=== PATIENT | male | born 1955 | race Caucasian/White ===

== ENCOUNTER → 2016-06-06 | Outpatient (CLI) | payer OTHER ==
[~2016-06-06] MED LIST: AMLO-110 PO; ASCO250T4 PO; ASPI81TA28 PO; ATOR-22 PO; CHOL1000 PO; CHOL20007 PO; COEN1CAP7 PO; GLC/500 PO; HYDR-5688 PO; LEVO75TA5 PO; LISI-461 PO; LIVER AID PO; MULT-506 PO; OMEG10007 PO; PRLSR20 PO; TRIATAB3 PO
[2016-06-06 12:50] LABS: URINE APPEARANCE CLEAR (CLEAR); URINE BILIRUBIN NEG (NEG); URINE COLOR YELLOW; URINE NITRITE NEG (NEG); URINE SPECIFIC GRAVITY 1.024 (1.000-1.030); UROBILINOGEN NEG (NEG); ZZUR CULT IF INDIC CLEAN CATCH NO
[2016-06-06 12:51] LABS: MANUAL MICROSCOPIC REQUIRED? NO; REVIEW REQ? NO
[2016-06-06 13:05] LABS: ALB/GLOB RATIO 1.2 (0.9-2); ALT/SGPT 35 U/L (12-78); AST/SGOT 11 U/L (15-37); BLOOD UREA NITROGEN 20 mg/dl (7-18); BUN/CREATININE RATIO 19.6 (10-20); CALCIUM 8.6 mg/dl (8.5-10.1); CARBON DIOXIDE 29 mmol/L (21-32); CHLORIDE 107 mmol/L (98-107); CHOLESTEROL 202 mg/dl (0-200); CHOLESTEROL/HDL RATIO 4.3; GLUCOSE 136 mg/dl (70-99); HDL CHOLESTEROL 47 mg/dl; POTASSIUM 4.4 mmol/L (3.5-5.1); SODIUM 142 mmol/L (136-145)
[2016-06-06 13:14] LABS: BASO % 0.2 %; BASO ABS # 0.02 K/uL (0-0.2); COMPLETE YES; EOS % 4.4 %; HEMATOCRIT 46.9 % (42-52); IG% 0.3 %; LYMPH % 18.9 %; LYMPH ABS # 1.64 K/uL (1.2-3.4); MEAN CELL VOLUME 87.3 fL (80-100); MEAN CORPUSCULAR HGB CONC 34.3 g/dl (32-36); MEAN PLATELET VOLUME 10.8 fL (7.4-10.4); MONO % 7.7 %; NEUT % 68.5 %; PLATELET COUNT 248 K/uL (130-400); RED BLOOD COUNT 5.37 M/uL (4.7-6.1)
[2016-06-06 13:16] LABS: ALKALINE PHOSPHATASE 48 U/L (45-117); LDL CHOLESTEROL CALCULATED 132 mg/dl; TRIGLYCERIDES 115 mg/dl (0-150); VERY LOW DENSITY LIPOPROT CALC 23 mg/dl
[2016-06-06 13:21] LABS: ESTIMATED AVERAGE GLUCOSE 143 mg/dl; HA1C FLAG Normal (Normal)
== END | disposition home or self-care (01) ==
LOC: C.LABBFT 09:00
PROVIDERS: ATTEND Internal Medicine
DX: E55.9 Vitamin D deficiency, unspecified (principal); E11.9 Type 2 diabetes mellitus without complications; E03.9 Hypothyroidism, unspecified; Z12.5 Encounter for screening for malignant neoplasm of prostate; E78.5 Hyperlipidemia, unspecified

== ENCOUNTER → 2016-07-25 | Outpatient (CLI) | payer OTHER ==
[2016-07-25 12:53] LABS: THYROID STIMULATING HORMONE 8.95 uIu/ml (0.300-4.500)
== END | disposition home or self-care (01) ==
LOC: C.LABBFT 07:34
PROVIDERS: ATTEND Nurse Practitioner
DX: Z11.59 Encounter for screening for other viral diseases (principal); E78.5 Hyperlipidemia, unspecified; E03.9 Hypothyroidism, unspecified

== ENCOUNTER 2016-08-07 15:44 | Emergency (ER) | payer OTHER ==
[~2016-08-07] VITALS: Ht 172.7 cm; Wt 89.8 kg
[~2016-08-07 15:44] MED LIST changes: -AMLO-110 PO; -ATOR-22 PO; -CHOL1000 PO; -GLC/500 PO; -HYDR-5688 PO; -LEVO75TA5 PO; -LISI-461 PO; -MULT-506 PO
[2016-08-07 15:55] VITALS: TEMP 37; Ht 172.7 cm; Wt 89.8 kg
[2016-08-07] MEDS ORDERED: MULT-506 PO (18:02)
[2016-08-07 18:03] LABS: BASO % 0.2 %; BASO ABS # 0.02 K/uL (0-0.2); COMPLETE YES; EOS % 4.6 %; HEMATOCRIT 43.8 % (42-52); IG% 0.5 %; LYMPH % 14.7 %; LYMPH ABS # 1.43 K/uL (1.2-3.4); MEAN CELL VOLUME 84.4 fL (80-100); MEAN CORPUSCULAR HEMOGLOBIN 30.1 pg (25-34); MEAN CORPUSCULAR HGB CONC 35.6 g/dl (32-36); MEAN PLATELET VOLUME 9.8 fL (7.4-10.4); MONO % 9.6 %; NEUT % 70.4 %; PLATELET COUNT 258 K/uL (130-400); RED BLOOD COUNT 5.19 M/uL (4.7-6.1); WHITE BLOOD COUNT 9.72 K/uL (4.8-10.8)
[2016-08-07] MEDS ORDERED: ATOR-22 PO (18:03)
[2016-08-07] MEDS ORDERED: AMLO-110 PO (18:04)
[2016-08-07] MEDS ORDERED: LISI-461 PO (18:05)
[2016-08-07] MEDS ORDERED: LEVO75TA5 PO (18:06)
[2016-08-07] MEDS ORDERED: GLC/500 PO (18:07)
[2016-08-07 18:08] LABS: BUN/CREATININE RATIO 17.6 (10-20); CALCIUM 9.2 mg/dl (8.5-10.1); CREATININE 0.92 mg/dl (0.60-1.40); POTASSIUM 3.7 mmol/L (3.5-5.1)
[2016-08-07] MEDS ORDERED: CHOL1000 PO (18:09)
[2016-08-07 18:11] LABS: ALB/GLOB RATIO 1.1 (0.9-2)
--- NOTE | 2016-08-07 18:28 | DIAGNOSTIC IMAGING REPORT ---
RIGHT INGUINAL ULTRASOUND CLINICAL HISTORY: Right inguinal pain s/p heavy lifting COMPARISON STUDY: No previous studies for comparison. FINDINGS: Ultrasonographic evaluation of the right inguinal region demonstrates a partially reducible fat-containing right inguinal hernia. IMPRESSION: Fat-containing right inguinal hernia. Electronically signed by: Cade Pete M.D. 08/07/2016 6:26 PM Dictated Date/Time: 08/07/2016 6:25 PM
--- NOTE | 2016-08-07 18:54 | EMERGENCY ROOM VISIT NOTE ---
History First contact with patient: 17:03 Chief Complaint: GROIN PAIN Stated Complaint: HERNIA History of Present Illness The patient is a 61 year old male who presents to the Emergency Room via private vehicle accompanied by female with complaints of "hernia". The patient states that yesterday afternoon around 7 PM, he had a calf therefore lifted this and immediately felt a pulling in his right lower quadrant. He notes that he has had a hernia there for many years, he believes he may reinjured it this evening. He notes lower abdominal pain which he rates as a 6/ 10. He notes relief of the pain when lying flat an exacerbation when he is sitting upright. He also feels a palpable bulge in the right lower quadrant/ inguinal region just superior to the right testicular region. 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 He notes that his urination has been normal. Review of Systems A complete 10-point Review of Systems was discussed with the patient, with pertinent positives and negatives listed in the History of Present Illness. All remaining Review of Systems questions can be considered negative unless otherwise specified. Past Medical/Surgical History Medical Problems: (1) HTN (hypertension) (2) Prostatitis Family History Cancer Social History Smoking Status: Never Smoker Marital Status: Housing Status: lives with family Occupation Status: employed Current/Historical Medications Scheduled Amlodipine (Norvasc), 5 MG PO DAILY Atorvastatin (Lipitor), 20 MG PO HS Cholecalciferol (Vitamin D3), 2,000 UNITS PO DAILY Levothyroxine Sodium (Levothyroxine Sodium), 75 MCG PO DAILY Lisinopril (Zestril), 10 MG PO DAILY Metformin Hcl (Glucophage), 1,000 MG PO BIDM Multivitamin (Multivitamin), 1 TAB PO DAILY Omeprazole (Prilosec), 20 MG PO QAM Allergies Coded Allergies: Codeine (Verified Adverse Reaction, Mild, nausea, 08/07/16) Physical Exam Vital Signs Date Time Temp Pulse Resp B/P Pulse Ox O2 Delivery O2 Flow Rate FiO2 08/07/16 19:03 76 21 137/85 96 08/07/16 15:55 37.0 86 18 175/92 98 Room Air Physical Exam VITAL SIGNS - Vital signs and nursing notes were reviewed. Patient is afebrile , hypertensive at 175/92, nontachypneic cardiac and is saturating well on room air 98%. GENERAL -61-year-old male appearing his stated age who is in no acute distress. Communicates well with provider and answers questions appropriately. SKIN - Without rashes. No breaks in the integument. There is a palpable bulge in the right inguinal region that is tender to palpation. This is partially reducible. LUNGS - Chest wall symmetric without accessory muscle use, intercostals retractions, or central cyanosis. Normal vesicular breath sounds CTA B/L. No wheezes, rales, or rhonchi appreciated. CARDIAC - RRR with S1/S2. No murmur, rubs, or gallops appreciated. ABDOMEN - Abdominal contour without pulsations or visible masses. BS normoactive all four quadrants. There is tenderness to palpation of the right inguinal region, right upper quadrant and diffuse lower abdominal region. There is also a palpable mass in the right inguinal region. This is partially reducible. The skin overlying this region is unremarkable. No erythema or evidence of sialitis. No hepatosplenomegaly, or ascites noted. Medical Decision & Procedures ER Provider Diagnostic Interpretation: RIGHT INGUINAL ULTRASOUND CLINICAL HISTORY: Right inguinal pain s/p heavy lifting COMPARISON STUDY: No previous studies for comparison. FINDINGS: Ultrasonographic evaluation of the right inguinal region demonstrates a partially reducible fat-containing right inguinal hernia. IMPRESSION: Fat-containing right inguinal hernia. Electronically signed by: Cade Pete M.D. 08/07/2016 6:26 PM Dictated Date/Time: 08/07/2016 6:25 PM Laboratory Results 08/07/16 17:58 Red Blood Count 5.19, Mean Corpuscular Volume 84.4, Mean Corpuscular Hemoglobin 30.1, Mean Corpuscular Hemoglobin Concent 35.6, Mean Platelet Volume 9.8, Neutrophils (%) (Auto) 70.4, Lymphocytes (%) (Auto) 14.7, Monocytes (%) (Auto) 9.6, Eosinophils (%) (Auto) 4.6, Basophils (%) (Auto) 0.2, Neutrophils # (Auto) 6.84, Lymphocytes # (Auto) 1.43, Monocytes # (Auto) 0.93, Eosinophils # (Auto) 0.45, Basophils # (Auto) 0.02 08/07/16 17:38 Test 08/07/16 17:38 08/07/16 17:58 Anion Gap 11.0 mmol/L (3-11) Est Creatinine Clear Calc Drug Dose 94.1 ml/min Estimated GFR () 105.1 Estimated GFR (Non- 90.7 BUN/Creatinine Ratio 17.6 (10-20) Calcium Level 9.2 mg/dl (8.5-10.1) Total Bilirubin 0.5 mg/dl (0.2-1) Aspartate Amino Transf (AST/SGOT) 15 U/L (15-37) Alanine Aminotransferase (ALT/SGPT) 23 U/L (12-78) Alkaline Phosphatase 64 U/L (45-117) Total Protein 7.7 gm/dl (6.4-8.2) Albumin 4.0 gm/dl (3.4-5.0) Globulin 3.7 gm/dl (2.5-4.0) Albumin/Globulin Ratio 1.1 (0.9-2) White Blood Count 9.72 K/uL (4.8-10.8) Red Blood Count 5.19 M/uL (4.7-6.1) Hemoglobin 15.6 g/dL (14.0-18.0) Hematocrit 43.8 % (42-52) Mean Corpuscular Volume 84.4 fL (80-100) Mean Corpuscular Hemoglobin 30.1 pg (25-34) Mean Corpuscular Hemoglobin Concent 35.6 g/dl (32-36) Platelet Count 258 K/uL (130-400) Mean Platelet Volume 9.8 fL (7.4-10.4) Neutrophils (%) (Auto) 70.4 % Lymphocytes (%) (Auto) 14.7 % Monocytes (%) (Auto) 9.6 % Eosinophils (%) (Auto) 4.6 % Basophils (%) (Auto) 0.2 % Neutrophils # (Auto) 6.84 K/uL (1.4-6.5) Lymphocytes # (Auto) 1.43 K/uL (1.2-3.4) Monocytes # (Auto) 0.93 K/uL (0.11-0.59) Eosinophils # (Auto) 0.45 K/uL (0-0.5) Basophils # (Auto) 0.02 K/uL (0-0.2) RDW Standard Deviation 39.7 fL (36.4-46.3) RDW Coefficient of Variation 12.9 % (11.5-14.5) Immature Granulocyte % (Auto) 0.5 % Immature Granulocyte # (Auto) 0.05 K/uL (0.00-0.02) Medical Decision Patient was seen and evaluated as above. After obtaining a thorough history and physical examination IV access was initiated, and a CBC, CMP as well as a right inguinal ultrasound were obtained. Thorough discussion was had with the patient regarding imaging modalities, and it was decided that we would hold off from the CT scan. The ultrasound revealed a partially reducible fat-containing hernia. Patient's lab work was unremarkable for acute process. No leukocytosis or anemia. CMP was completely normal. Patient was then offered a CAT scan after returning from ultrasound, due to his initial complaint of generalized abdominal pain, however after returning from ultrasound he notes he was feeling much better, and at this time declined the CAT scan, specifically at 6:45 PM. It was decided the patient would return with worsening of his pain. He was provided with the number for a general surgeon to follow-up by by calling the number provided first thing tomorrow morning. I do believe this is reasonable. He was specifically educated to return with worsening pain, fevers , chills or any new/concerning symptoms. He was educated upon management today symptoms, had questions prior to discharge, was educated upon worrisome symptoms which to return and was discharged home in good condition. In evaluation treatment this patient following differential diagnoses were entertained: Right inguinal hernia, acute intra-abdominal process, incarcerated hernia, strangely did hernia, among others. Impression Primary Impression: Inguinal hernia Departure Information Dispostion Home / Self-Care Condition GOOD Referrals Malcolm Lamas M.D. (PCP) Vasu Rivera D.O. Patient Instructions My [facility] Additional Instructions You have been treated in the Emergency Department your Abdominal Pain. Laboratory results and imaging studies have ruled out any emergent causes for your abdominal pain which would warrant admission or surgery. Ultrasound results: Ultrasonographic evaluation of the right inguinal region demonstrates a partially reducible fat-containing right inguinal hernia. For pain control, you can use the following [id number] medicines (if >12 yo): - Regular strength (325mg/tab) Tylenol (acetaminophen) 2 tabs every 4-6 hours as needed. Do not exceed 12 tablets in a 24 hour period. Avoid taking more than 4 grams (4000 mg) of Tylenol per day. This includes any other sources of acetaminophen you may take on a regular basis. - Regular strength (200 mg/tab) Advil (ibuprofen) 1-2 tabs every 4-6 hours as needed. Do not exceed a dose of 3200 mg per day. Drink plenty of water and stay well hydrated. As with any trip to the Emergency Department, you should follow-up with your Primary Care Provider from today's visit. You have been provided the number for a surgeon, who will be able to manage your inguinal hernia. This is Dr. Rivera. Please call the above contact first thing tomorrow morning. Return to the emergency department if your symptoms persist despite treatment plan outlined above or if the following symptoms occur: increased fevers, chills , worsening nausea/vomiting, blood in your stool or urine.
[2016-08-07 19:03] VITALS: BP 137/85; PULSE 76; O2SAT 96
[2016-09-11] MEDS ORDERED: OMEG10007 PO (14:50)
== END 2016-08-07 19:06 | disposition home or self-care (01) ==
LOC: C.EDB 15:45
DX: K40.90 Unilateral inguinal hernia, without obstruction or gangrene, not specified as recurrent (principal); I10 Essential (primary) hypertension; Z79.84 Long term (current) use of oral hypoglycemic drugs; Z79.899 Other long term (current) drug therapy; Z88.5 Allergy status to narcotic agent; Z80.9 Family history of malignant neoplasm, unspecified

== ENCOUNTER → 2016-09-12 | Outpatient (CLI) | payer OTHER ==
[~2016-09-12] MED LIST changes: +AMLO-110 PO; -ASCO250T4 PO; -ASPI81TA28 PO; +ATOR-22 PO; +CHOL1000 PO; -CHOL20007 PO; -COEN1CAP7 PO; +GLC/500 PO; +HYDR-5688 PO; +LEVO75TA5 PO; +LISI-461 PO; -LIVER AID PO; +MULT-506 PO; -TRIATAB3 PO
== END | disposition home or self-care (01) ==
LOC: C.LABBFT 08:31
PROVIDERS: ATTEND Physician Assistant Medical
DX: E03.9 Hypothyroidism, unspecified (principal)

== ENCOUNTER 2016-09-14 06:47 | Day surgery (SDC) | payer OTHER ==
[~2016-09-14] VITALS: Ht 172.7 cm; Wt 90.9 kg
[~2016-09-14 06:47] MED LIST changes: +CEFAZOLIN 2000 MG/60 ML D5W IV SCH; +HEPARIN SOD 5000 UNIT/0.5 ML CARP SC SCH; -HYDR-5688 PO; +LACTATED RINGER'S 1000ML 1,000 ML IV SCH
[2016-09-14] MEDS ORDERED: MIDAZOLAM HCL 1 MG/ML 2ML VIAL ONE (07:12)
[2016-09-14 07:13] VITALS: BP 154/90; PULSE 91; TEMP 37; O2SAT 98; Ht 172.7 cm; Wt 90.9 kg
[2016-09-14] MEDS ORDERED: FENTANYL CITRATE INJ 50 MCG/1 ML 2 ML VIAL ONE ×2 (07:26→09:51)
--- NOTE | 2016-09-14 08:00 | History & Physical Bridge Note ---
H&P Re-Evaluation Bridge Note: I have examined the patient, reviewed the History & Physical and in the interval since the performance of the History & Physical I have noted the following changes of clinical significance: No changes noted
[2016-09-14] MEDS ORDERED: HYDR-5688 PO (08:08)
--- NOTE | 2016-09-14 08:10 | Discharge Instructions ---
Discharge Instructions Date of Service Sep 14, 2016. Admission Reason for Admission: Right Inguinal Hernia Discharge Discharge Diagnosis / Problem: Right Inguinal Hernia Discharge Goals Goal(s): Decrease discomfort, Improve function Activity Recommendations Activity Limitations: as noted below Lifting Limitations: no more than 10 pounds Exercise/Sports Limitations: until after follow-up appointment May Resume Sexual Activity: after follow-up appointment Shower/Bathe: tomorrow . Instructions / Follow-Up Instructions / Follow-Up Please follow-up with Dr. Rivera in the office in 1-2 weeks. Please call the office at [phone] with any questions or concerns. Current Hospital Diet Patient's current hospital diet: Discharge Diet Recommended Diet: Regular Diet Pending Studies Studies pending at discharge: no Medical Emergencies . Who to Call and When: Medical Emergencies: If at any time you feel your situation is an emergency, please call 911 immediately. . Non-Emergent Contact Non-Emergency issues call your: Primary Care Provider, Surgeon Call Non-Emergent contact if: temperature is above 101.5, your pain is not controlled, wound has increased drainage, wound has increased redness . "Provider Documentation" section prepared by Marisa Castro. . VTE Core Measure Inpt VTE Proph given/why not?: Unfractionated heparin SQ, SCD's
[2016-09-14] MEDS ORDERED: BUPIVACAINE/EPINEPHRINE 0.5% MPF 1:200,000 30 ML VIAL ONE (08:17)
[2016-09-14] MEDS ORDERED: LIDOCAINE HCL 2% 2 ML VIAL (20MG/ML) ONE (08:42)
[2016-09-14] MEDS ORDERED: DEXAMETHASONE SOD INJ 4 MG/ML VIAL ONE (08:42)
[2016-09-14] MEDS ORDERED: ONDANSETRON INJ 2 MG/ML 2 ML VIAL ONE (08:42)
[2016-09-14] MEDS ORDERED: GLYCOPYRROLATE INJ 0.2 MG/ML VIAL ONE (08:42)
[2016-09-14] MEDS ORDERED: ROCURONIUM BROMIDE 10 MG/ML 5 ML VIAL ONE (08:42)
[2016-09-14] MEDS ORDERED: NEOSTIGMINE METHYLSULFATE 5 MG/5 ML SYR ONE (08:42)
[2016-09-14] MEDS ORDERED: PROPOFOL IV EMULSION 10 MG/ML 20 ML VIAL IV ONE (08:43)
[2016-09-14] MEDS ORDERED: ATROPINE SULFATE 0.1 MG/ML 5ML SYR IV PRN (08:45)
[2016-09-14] MEDS ORDERED: LABETALOL HCL IV 5 MG/ML 20ML IV PRN (08:45)
[2016-09-14] MEDS ORDERED: ONDANSETRON INJ 2 MG/ML 2 ML VIAL IV PRN ×2 (08:45→09:45)
[2016-09-14] MEDS ORDERED: HYDROmorphone INJ 1 MG/ML SYR IV PRN (08:45)
[2016-09-14] MEDS ORDERED: EpHEDrine SULFATE INJ 50 MG/ML AMP IV PRN (08:45)
[2016-09-14] MEDS ORDERED: MEPERIDINE HCL 25 MG/ML CARP IV PRN (08:45)
[2016-09-14] MEDS ORDERED: FENTANYL CITRATE INJ 50 MCG/1 ML 2 ML VIAL IV PRN (08:45)
[2016-09-14] MEDS ORDERED: KETOROLAC TROMETHAMINE 30 MG/ML VIAL ONE (09:19)
[2016-09-14] MEDS ORDERED: SODIUM CHLORIDE 0.9% 1000ML 1,000 ML IV SCH (09:35)
--- NOTE | 2016-09-14 09:39 | [facility] Operative Report ---
Operative Report Operative Date Sep 14, 2016. Pre-Operative Diagnosis Right Inguinal Hernia Post-Operative Diagnosis large direct right inguinal hernia Procedure(s) Performed open right inguinal hernia repair with plug/patch mesh Surgeon Dr. Rivera Director Of Online Education Surgeon(s) Marisa Castro-PAc Estimated Blood Loss 5 cc Findings large direct inguinal hernia Specimens none per surgeon Anesthesia LMA Complication(s) None Disposition Recovery Room / PACU I attest to the content of the Intraoperative Record and any orders documented therein. Any exceptions are noted below.
[2016-09-14] MEDS ORDERED: HYDROCODONE/ACETAMOPHEN 5/325MG TAB PO PRN ×2 (09:45)
[2016-09-14 10:35] VITALS: BP 124/70; PULSE 74; TEMP 36.7; O2SAT 96
[2016-09-14 11:05] VITALS: BP 124/70; PULSE 84; O2SAT 94
--- NOTE | 2016-09-14 11:24 | Anesthesiology Progress Note ---
Anesthesia Post Op Note Date & Time Sep 14, 2016 at 11:23 Vital Signs Pain Intensity: 2 Vital Signs Past 12 Hours Date Time Temp Pulse Resp B/P Pulse Ox O2 Delivery O2 Flow Rate FiO2 09/14/16 10:35 36.7 74 16 124/70 96 Room Air 09/14/16 10:30 36.6 09/14/16 10:27 76 16 99 09/14/16 10:27 77 16 09/14/16 10:25 116/71 09/14/16 10:22 77 19 97 09/14/16 10:22 77 19 09/14/16 10:20 114/63 09/14/16 10:17 70 20 91 09/14/16 10:17 71 20 09/14/16 10:15 109/57 09/14/16 10:12 72 15 09/14/16 10:12 70 15 93 09/14/16 10:10 107/56 09/14/16 10:07 71 13 93 09/14/16 10:07 71 13 09/14/16 10:06 121/65 09/14/16 10:02 78 14 09/14/16 10:02 78 14 89 09/14/16 10:01 78 15 94 09/14/16 10:01 78 15 09/14/16 10:00 137/71 09/14/16 09:56 69 12 96 09/14/16 09:56 69 12 09/14/16 09:55 119/70 09/14/16 09:51 72 14 09/14/16 09:51 71 14 98 09/14/16 09:50 74 16 09/14/16 09:50 74 16 124/73 98 09/14/16 09:45 73 16 116/70 97 09/14/16 09:45 74 16 09/14/16 09:40 74 20 09/14/16 09:40 74 20 125/70 98 09/14/16 09:35 79 09/14/16 09:35 79 132/82 100 09/14/16 09:35 36.6 78 12 132/82 100 Mask 10 09/14/16 07:13 37 91 20 154/90 98 Room Air Notes Mental Status: alert / awake / arousable, participated in evaluation Pt Amnestic to Procedure: Yes Nausea / Vomiting: adequately controlled Pain: adequately controlled Airway Patency, RR, SpO2: stable & adequate BP & HR: stable & adequate Hydration State: stable & adequate Anesthetic Complications: no major complications apparent
[2016-09-14] MEDS ORDERED: HYDROCODONE/ACETAMOPHEN 5/325MG TAB ONE (11:34)
[2016-09-14 11:35] VITALS: BP 120/73; PULSE 75; O2SAT 94
[2016-09-14 12:55] VITALS: BP 141/82; PULSE 94; TEMP 36.9; O2SAT 96
--- NOTE | 2016-09-14 13:23 | OPERATIVE REPORT ---
DATE OF OPERATION: 09/14/2016 PREOPERATIVE DIAGNOSIS: Right inguinal hernia. POSTOPERATIVE DIAGNOSIS: Large direct right inguinal hernia. PROCEDURE: Open right inguinal hernia repair with plug and patch mesh. SURGEON: Dr. Rivera. MANAGER LAND: Marisa Castro PA-C ESTIMATED BLOOD LOSS: Approximately 10 mL. COMPLICATIONS: No immediate. ANESTHESIA: General with laryngeal mask airway. OPERATIVE NOTE: After informed consent was obtained, the patient was taken to the operating suite and placed in supine position. After successful intubation with the LMA, the right groin was shaved and sterilely prepped and draped in usual fashion. I made an inguinal incision with a 15 blade scalpel and carried down through the soft tissue using electrocautery. The external oblique aponeurosis was skeletonized and a fresh blade was used to make a new incision in it. Metzenbaum scissors were used to extend this distally through the external ring as well as for several centimeters proximally. Once in the inguinal canal, there was an obvious large direct inguinal hernia. We were able to bluntly dissect the tissue away and gently pull on the sac and tease it away from other structures. I was able to place a finger underneath the cord and cord structures and gently tease them off the pubic bone and place a Vianey around them. We then used a small amounts of electrocautery as well as primary blunt dissection to get the sac completely away from all other structures and it easily dunked back down into the abdominal cavity. This was a very large wide mouthed hernia. We did inspect the cord and cord structures and there was no evidence of an indirect hernia. Because of the size, I decided to use a plug and patch polypropylene mesh technique. I was able to use an extra large plug and patch. We placed the plug into the defect and secured it using 0 nylon in simple interrupted fashion to the surrounding musculature. We then used a pardo-holed piece of polypropylene mesh as an onlay. We secured it distally to Abbe's ligament, laterally along the shelving portion of Poupart's ligament and medially along the midline musculature. The "arms" of the mesh were wrapped around behind the cord and cord structures and again secured using 0 nylon to underlying muscle. The mesh did not seem to impinge on the cord structures and it was tension free. At the end of the procedure, there was adequate hemostasis. We thoroughly irrigated the wound. I used Marcaine around the edges of the mesh for postoperative analgesia. We then closed the external oblique aponeurosis with 2-0 Vicryl in a running fashion. Soft tissue was irrigated and closed with 3-0 Vicryl and 4-0 Monocryl for the skin. Some additional Marcaine was used for postoperative analgesia and skin glue used as a dressing. The patient was awakened, extubated, and transferred to recovery in stable condition. I attest to the content of the Intraoperative Record and any orders documented therein. Any exceptio ns are noted below.
== END 2016-09-14 13:00 | disposition home or self-care (01) ==
LOC: C.ACU 06:47
PROVIDERS: ATTEND Surgery
DX: K40.90 Unilateral inguinal hernia, without obstruction or gangrene, not specified as recurrent (principal); I10 Essential (primary) hypertension; E11.9 Type 2 diabetes mellitus without complications; E78.5 Hyperlipidemia, unspecified; E03.9 Hypothyroidism, unspecified; Z98.52 Vasectomy status; Z98.890 Other specified postprocedural states; Z88.5 Allergy status to narcotic agent; E66.9 Obesity, unspecified; Z68.30 Body mass index [BMI] 30.0-30.9, adult; Z83.3 Family history of diabetes mellitus; Z82.49 Family history of ischemic heart disease and other diseases of the circulatory system

== ENCOUNTER → 2016-11-07 | Outpatient (CLI) | payer OTHER ==
[~2016-11-07] MED LIST changes: -CEFAZOLIN 2000 MG/60 ML D5W IV SCH; -HEPARIN SOD 5000 UNIT/0.5 ML CARP SC SCH; -LACTATED RINGER'S 1000ML 1,000 ML IV SCH
[2016-11-07 12:26] LABS: ALT/SGPT 28 U/L (12-78); AST/SGOT 11 U/L (15-37); BLOOD UREA NITROGEN 20 mg/dl (7-18); BUN/CREATININE RATIO 19.8 (10-20); CALCIUM 8.3 mg/dl (8.5-10.1); CARBON DIOXIDE 27 mmol/L (21-32); CHLORIDE 103 mmol/L (98-107); GLUCOSE 138 mg/dl (70-99); POTASSIUM 3.7 mmol/L (3.5-5.1); SODIUM 139 mmol/L (136-145)
[2016-11-07 12:37] LABS: ALB/GLOB RATIO 1.2 (0.9-2); ALKALINE PHOSPHATASE 61 U/L (45-117); CHOLESTEROL 215 mg/dl (0-200); HDL CHOLESTEROL 43 mg/dl; LDL CHOLESTEROL CALCULATED 133 mg/dl; TRIGLYCERIDES 196 mg/dl (0-150); VERY LOW DENSITY LIPOPROT CALC 39 mg/dl
[2016-11-07 13:01] LABS: RATIO 16.8 mcg/mg (0-30.0)
== END | disposition home or self-care (01) ==
LOC: C.LABBFT 07:37
PROVIDERS: ATTEND Nurse Practitioner
DX: E11.9 Type 2 diabetes mellitus without complications (principal); E78.5 Hyperlipidemia, unspecified; E03.9 Hypothyroidism, unspecified; R97.20 Elevated prostate specific antigen [PSA]

== ENCOUNTER → 2017-04-04 | Outpatient (CLI) | payer OTHER ==
[2017-04-04 12:44] LABS: ALT/SGPT 29 U/L (12-78); AST/SGOT 13 U/L (15-37); BLOOD UREA NITROGEN 24 mg/dl (7-18); BUN/CREATININE RATIO 23.1 (10-20); CALCIUM 8.7 mg/dl (8.5-10.1); CARBON DIOXIDE 29 mmol/L (21-32); CHLORIDE 104 mmol/L (98-107); CHOLESTEROL 145 mg/dl (0-200); CREATININE 1.06 mg/dl (0.60-1.40); ESTIMATED AVERAGE GLUCOSE 131 mg/dl; GLUCOSE 129 mg/dl (70-99); GLUCOSE,FASTING 129 mg/dl (70-99); HA1C FLAG Normal (Normal); POTASSIUM 4.6 mmol/L (3.5-5.1); SODIUM 138 mmol/L (136-145); TRIGLYCERIDES 93 mg/dl (0-150); VERY LOW DENSITY LIPOPROT CALC 19 mg/dl
[2017-04-04 12:48] LABS: ALB/GLOB RATIO 1.2 (0.9-2); ALKALINE PHOSPHATASE 51 U/L (45-117); CHOLESTEROL/HDL RATIO 3.5; HDL CHOLESTEROL 42 mg/dl; LDL CHOLESTEROL CALCULATED 84 mg/dl
== END | disposition home or self-care (01) ==
LOC: C.LABBFT 07:50
PROVIDERS: ATTEND Internal Medicine
DX: E03.9 Hypothyroidism, unspecified (principal); E78.5 Hyperlipidemia, unspecified; R97.20 Elevated prostate specific antigen [PSA]; N40.0 Benign prostatic hyperplasia without lower urinary tract symptoms; E11.9 Type 2 diabetes mellitus without complications

== ENCOUNTER → 2017-07-03 | Day surgery (SDC) | payer OTHER ==
[2017-06-21 11:16] VITALS: Ht 172.7 cm; Wt 88.6 kg
[~2017-07-03] VITALS: Ht 172.7 cm; Wt 88.6 kg
[~2017-07-03] MED LIST changes: -ATOR-22 PO; +ATOR-24 PO; +ATROPINE SULFATE 0.1 MG/ML 5ML SYR IV PRN; +BUPIVACAINE 0.5 % 5 MG/1 ML PF 10ML VIAL ONE; +CEFAZOLIN 2000MG IV PUSH 15 ML IV SCH; -CHOL1000 PO; +EpHEDrine SULFATE INJ 50 MG/ML AMP IV PRN; +FENTANYL CITRATE INJ 50 MCG/1 ML 2 ML VIAL IV PRN; +FENTANYL CITRATE INJ 50 MCG/1 ML 2 ML VIAL ONE; +FLUMAZENIL 0.1 MG/1 ML 10 ML VIAL IV PRN; +HYDROmorphone INJ 2 MG/ML SYR/VIAL IV PRN; +LABETALOL HCL IV 5 MG/ML 20ML IV PRN; +LACTATED RINGER'S 1000ML 1,000 ML IV SCH; +LEVO125T5 PO; -LEVO75TA5 PO; +LIDOCAINE HCL 1% 20 ML VIAL ONE; +LIDOCAINE HCL 2% 2 ML VIAL (20MG/ML) ONE; +MEPERIDINE HCL 25 MG/ML CARP IV PRN; +MIDAZOLAM HCL 1 MG/ML 2ML VIAL ONE; +NALOXONE HCL 0.4 MG/1 ML VIAL/CARP IV PRN; -OMEG10007 PO; +ONDANSETRON INJ 2 MG/ML 2 ML VIAL IV PRN; +OXYCODONE/ACETAMINOPHEN 5-325 TAB PO PRN; +PHENYLEPHRINE 100MCG/ML 5ML SYR IV PRN; +PROPOFOL IV EMULSION 10 MG/ML 20 ML VIAL IV ONE; +SODIUM CHLORIDE 0.9% 1000ML 1,000 ML IV SCH; +TRAM-10 PO; +VITAMIN D PO
--- NOTE | 2017-07-03 08:53 | [facility] Post Operative Brief Note ---
Immediate Operative Summary Operative Date Jul 03, 2017. Pre-Operative Diagnosis Left carpal tunnel syndrome Post-Operative Diagnosis Same as pre-op Procedure(s) Performed Left Carpal Tunnel Release Surgeon Instructional Technology Instructor Surgeon(s) Hans CEBALLOS Estimated Blood Loss zero Findings Consistent with Post-Op Diagnosis Specimens None Drains None Anesthesia Type MAC Complication(s) none Disposition Disposition:
[2017-07-03 08:57] VITALS: TEMP 36.5
--- NOTE | 2017-07-03 08:57 | Discharge Instructions-SurgCtr ---
Discharge Instructions Date of Service Jul 03, 2017. Visit Reason for Visit: Left Carpal Tunnel Syndrome Discharge Discharge Diagnosis / Problem: SAME ABOVE Discharge Goals Goal(s): Decrease discomfort, Improve function Medications Stopped Medications Name(s): metformin Activity Recommendations Activity Limitations: as noted below Lifting Limitations: until after follow-up appointment Exercise/Sports Limitations: until after follow-up appointment Shower/Bathe: keep incision dry Anesthesia . Post Anesthesia Instructions: If you have had General Anesthesia or IV Sedation: * Do not drive today. * Resume driving when surgeon permits. * Do not make important decisions or sign legal documents today. * Call surgeon for: 1. Temperature elevations greater than 101 degrees F. 2. Uncontrollable pain. 3. Excessive bleeding. 4. Persistent nausea and vomiting. 5. Medication intolerance (nausea, vomiting or rash). * For nausea and vomiting use only clear liquids such as: tea, soda, bouillon until nausea subsides, then gradually increase diet as tolerated. * If you have any concerns or questions, call your surgeon's office. If physician is unavailable and it is an emergency, call 911 or go to the nearest emergency room. . Diet Recommendations Home Diet: resume previous diet Procedures Procedures Performed: Left Carpal Tunnel Release Pending Studies Studies pending at discharge: no Medical Emergencies . Who to Call and When: Medical Emergencies: If at any time you feel your situation is an emergency, please call 911 immediately. . Non-Emergent Contact Non-Emergency issues call your: Primary Care Provider . . "Provider Documentation" section prepared by Ankit Araujo. .
--- NOTE | 2017-07-03 09:08 | OPERATIVE REPORT ---
DATE OF OPERATION: 07/03/2017 PREOPERATIVE DIAGNOSIS: Left carpal tunnel syndrome. POSTOPERATIVE DIAGNOSIS: Left carpal tunnel syndrome. PROCEDURE: Decompression medial nerve release transverse carpal ligament, left wrist. SURGEON: Johnathan Mcdowell MD CURTAIN FELLER BLINDSTITCH: Ankit Araujo PA-C. ANESTHESIOLOGIST: Dr. Mcneal. ANESTHESIA: Local with IV sedation. DRAINS: None. COMPLICATIONS: None. CONDITION: The patient tolerated the procedure well and returned to the recovery room in apparent satisfactory condition. INDICATIONS FOR SURGERY: Luis Miguel is a 62-year-old male who has had increasing pain and numbness involving his left hand consistent with carpal tunnel syndrome. Went over treatment options and elects to go ahead and proceed with surgery. Procedure, expected outcomes, side effects and risks were all explained in detail. OPERATION AND FINDINGS: PROCEDURE: The patient was taken to the OR at which time he was placed supine on the operating table. The left hand was prepped and draped in the usual sterile fashion for this surgery. The anticipated incision site was infiltrated with 1% Xylocaine. A forearm tourniquet was placed on the arm and tourniquet was placed up to 250 mmHg. Incision was made vertically over the transverse carpal tunnel ligament. Dissection was done down until the palmar fascia was identified and divided with a 15-blade. The transverse carpal ligament was identified and also divided with the 15-blade and upbiting scissors. A small portion of the forearm fascia was divided also. Electrocautery was used to control any areas of bleeding. The nerve was freed up from any scar tissue and adequately decompressed. The wound then was copiously irrigated. It was closed then with interrupted 4-0 nylon sutures. Marcaine without Epinephrine was placed in the skin edges. It was closed in a layered fashion. We placed a sterile dressing of Xeroform, 4 x 4, volar splint, and an Al bandage. DISPOSITION: The patient was returned back to the recovery room in apparent satisfactory condition. I attest to the content of the Intraoperative Record and any orders documented therein. Any exception s are noted below.
--- NOTE | 2017-07-03 09:20 | Anesthesia Progress Nt - [facility] ---
Anesthesia Post Op Note Date & Time Jul 03, 2017 at 09:20 Vital Signs Pain Intensity: 3 Vital Signs Past 12 Hours Date Time Temp Pulse Resp B/P (MAP) Pulse Ox O2 Delivery O2 Flow Rate FiO2 07/03/17 08:57 36.5 75 16 130/80 (97) 95 Room Air 07/03/17 07:59 36.7 76 16 149/90 (109) 97 Room Air Notes Mental Status: alert / awake / arousable, participated in evaluation Pt Amnestic to Procedure: Yes Nausea / Vomiting: adequately controlled Pain: adequately controlled Airway Patency, RR, SpO2: stable & adequate BP & HR: stable & adequate Hydration State: stable & adequate Anesthetic Complications: no major complications apparent
--- NOTE | 2017-07-03 09:29 | Discharge Instructions-SurgCtr ---
Discharge Instructions Date of Service Jul 03, 2017. Visit Reason for Visit: Left Carpal Tunnel Syndrome Discharge Discharge Diagnosis / Problem: SAME ABOVE Discharge Goals Goal(s): Decrease discomfort, Improve function Medications Stopped Medications Name(s): metformin Activity Recommendations Activity Limitations: as noted below Lifting Limitations: until after follow-up appointment Exercise/Sports Limitations: until after follow-up appointment Shower/Bathe: keep incision dry Anesthesia . Post Anesthesia Instructions: If you have had General Anesthesia or IV Sedation: * Do not drive today. * Resume driving when surgeon permits. * Do not make important decisions or sign legal documents today. * Call surgeon for: 1. Temperature elevations greater than 101 degrees F. 2. Uncontrollable pain. 3. Excessive bleeding. 4. Persistent nausea and vomiting. 5. Medication intolerance (nausea, vomiting or rash). * For nausea and vomiting use only clear liquids such as: tea, soda, bouillon until nausea subsides, then gradually increase diet as tolerated. * If you have any concerns or questions, call your surgeon's office. If physician is unavailable and it is an emergency, call 911 or go to the nearest emergency room. . Instructions / Follow-Up Instructions / Follow-Up MEDICATIONS: * Resume previous medications unless instructed otherwise by your surgeon. * Always take pain medication on a full stomach or with food to avoid upset stomach. * Do not drink alcohol or drive while taking narcotics. * Ibuprofen or Tylenol may be taken if narcotic not needed. SPECIAL CARE INSTRUCTIONS: __ None _X_ Keep extremity elevated and iced x 48 hours; apply ice 20-30 minutes 8-10 times/day. May remove at night. __ Sling __24 hrs/day __ Remove at night __ Shoulder Immobilizer __ 24 hrs/day __ Remove at night _X_ Dressing _X_ Maintain until seen in office, may shower with plastic over site __ Remove dressings in 24-48 hours and then may shower __ Cover incisions with band-aids after showering __ Do not remove steri-strips Call physician if chills or temperature rises above 102 degrees or pain unrelieved by prescribed pain medications at . . Diet Recommendations Home Diet: resume previous diet Procedures Procedures Performed: Left Carpal Tunnel Release Pending Studies Studies pending at discharge: no Medical Emergencies . Who to Call and When: Medical Emergencies: If at any time you feel your situation is an emergency, please call 911 immediately. . Non-Emergent Contact Non-Emergency issues call your: Primary Care Provider . . "Provider Documentation" section prepared by Ankit Araujo. .
[2017-07-03 09:34] VITALS: BP 137/85; PULSE 70; O2SAT 96
== END | disposition home or self-care (01) ==
LOC: X.SURG 07:46
PROVIDERS: ATTEND Orthopaedic Surgery
DX: G56.02 Carpal tunnel syndrome, left upper limb (principal); I10 Essential (primary) hypertension; E11.9 Type 2 diabetes mellitus without complications; E78.5 Hyperlipidemia, unspecified; E78.00 Pure hypercholesterolemia, unspecified; E03.9 Hypothyroidism, unspecified; Z88.5 Allergy status to narcotic agent

== ENCOUNTER 2017-09-10 09:23 | Emergency (ER) | payer OTHER ==
[~2017-09-10] VITALS: Ht 172.7 cm; Wt 96.2 kg
[~2017-09-10 09:23] MED LIST changes: -ATROPINE SULFATE 0.1 MG/ML 5ML SYR IV PRN; -BUPIVACAINE 0.5 % 5 MG/1 ML PF 10ML VIAL ONE; -CEFAZOLIN 2000MG IV PUSH 15 ML IV SCH; -EpHEDrine SULFATE INJ 50 MG/ML AMP IV PRN; -FENTANYL CITRATE INJ 50 MCG/1 ML 2 ML VIAL IV PRN; -FENTANYL CITRATE INJ 50 MCG/1 ML 2 ML VIAL ONE; -FLUMAZENIL 0.1 MG/1 ML 10 ML VIAL IV PRN; -HYDROmorphone INJ 2 MG/ML SYR/VIAL IV PRN; -LABETALOL HCL IV 5 MG/ML 20ML IV PRN; -LACTATED RINGER'S 1000ML 1,000 ML IV SCH; -LIDOCAINE HCL 1% 20 ML VIAL ONE; -LIDOCAINE HCL 2% 2 ML VIAL (20MG/ML) ONE; -MEPERIDINE HCL 25 MG/ML CARP IV PRN; -MIDAZOLAM HCL 1 MG/ML 2ML VIAL ONE; -NALOXONE HCL 0.4 MG/1 ML VIAL/CARP IV PRN; -ONDANSETRON INJ 2 MG/ML 2 ML VIAL IV PRN; -OXYCODONE/ACETAMINOPHEN 5-325 TAB PO PRN; -PHENYLEPHRINE 100MCG/ML 5ML SYR IV PRN; -PROPOFOL IV EMULSION 10 MG/ML 20 ML VIAL IV ONE; -SODIUM CHLORIDE 0.9% 1000ML 1,000 ML IV SCH
[2017-09-10 09:34] VITALS: TEMP 36.9; Ht 172.7 cm; Wt 96.2 kg
[2017-09-10] MEDS ORDERED: CHOL1000 PO (09:58)
[2017-09-10] MEDS ORDERED: LSN20 PO (09:58)
[2017-09-10] MEDS ORDERED: ACETAMINOPHEN 500 MG TAB PO STA (10:13)
[2017-09-10 10:25] LABS: BASO % 0.3 %; BASO ABS # 0.02 K/uL (0-0.2); EOS % 5.3 %; EOS ABS # 0.32 K/uL (0-0.5); HEMATOCRIT 44.7 % (42-52); HEMOGLOBIN 16.1 g/dL (14.0-18.0); IG# 0.03 K/uL (0.00-0.02); LYMPH % 22.4 %; LYMPH ABS # 1.36 K/uL (1.2-3.4); MEAN CELL VOLUME 85.8 fL (80-100); MEAN CORPUSCULAR HEMOGLOBIN 30.9 pg (25-34); MEAN PLATELET VOLUME 10.1 fL (7.4-10.4); MONO % 8.1 %; MONO ABS # 0.49 K/uL (0.11-0.59); NEUT % 63.4 %; NEUT ABS # 3.84 K/uL (1.4-6.5); PLATELET COUNT 239 K/uL (130-400); RED CELL DISTRIBUTION WIDTH CV 12.9 % (11.5-14.5); RED CELL DISTRIBUTION WIDTH SD 40.8 fL (36.4-46.3); WHITE BLOOD COUNT 6.06 K/uL (4.8-10.8)
[2017-09-10 10:33] LABS: ALBUMIN 3.8 gm/dl (3.4-5.0); ALT/SGPT 25 U/L (12-78); AST/SGOT 15 U/L (15-37); BLOOD UREA NITROGEN 19 mg/dl (7-18); CALCIUM 8.5 mg/dl (8.5-10.1); CARBON DIOXIDE 24 mmol/L (21-32); CREATININE 1.03 mg/dl (0.60-1.40); GLUCOSE 214 mg/dl (70-99); POTASSIUM 3.8 mmol/L (3.5-5.1); SODIUM 138 mmol/L (136-145)
[2017-09-10 10:37] LABS: ALKALINE PHOSPHATASE 62 U/L (45-117); CKMB 0.6 ng/ml (0.5-3.6); TOTAL PROTEIN 7.3 gm/dl (6.4-8.2)
--- NOTE | 2017-09-10 10:40 | DIAGNOSTIC IMAGING REPORT ---
CT HEAD WITHOUT CONTRAST (CT) CLINICAL HISTORY: Stroke SLURRED SPEECH COMPARISON STUDY: No previous studies for comparison. TECHNIQUE: Axial CT of the brain is performed from the vertex to the skull base. IV contrast was not administered for this examination. A dose lowering technique was utilized adhering to the principles of ALARA. CT DOSE: 638.56 mGycm FINDINGS: No intra or extra-axial mass lesions are visualized. There is no CT evidence of acute cortical infarction. There is no evidence of midline shift. There is no acute hemorrhage. No calvarial fractures are visualized. There is no evidence of pathologic ventricular dilatation. There is no evidence of acute sinusitis IMPRESSION: No acute intracranial findings Electronically signed by: Cade Pete M.D. 09/10/2017 10:39 AM Dictated Date/Time: 09/10/2017 10:38 AM
[2017-09-10] MEDS ORDERED: LORAZEPAM 2 MG/ML 1 ML VIAL IV STA (11:44)
[2017-09-10] MEDS ORDERED: GADAVIST IV PRN (13:00)
--- NOTE | 2017-09-10 13:11 | DIAGNOSTIC IMAGING REPORT ---
BRAIN COMBO CLINICAL HISTORY: trouble speaking, headache mental status change COMPARISON STUDY: No previous studies for comparison. TECHNIQUE: Utilizing a 1.5 Alina magnet and dedicated coil, multiplanar, multiecho imaging of the brain was performed pre and postcontrast administration. IV administration of 9.5 mL of Gadavist contrast was uneventful. FINDINGS: Signal characteristics of the cerebellar as well as cerebral hemispheres are unremarkable. Ventricular system is midline. Postcontrast images are negative for an enhancing lesion. Diffusion images show no acute ischemic insult. IMPRESSION: Normal study. The above report was generated using voice recognition software. It may contain grammatical, syntax or spelling errors. Electronically signed by: Troy Palma M.D. 09/10/2017 1:10 PM Dictated Date/Time: 09/10/2017 1:07 PM
[2017-09-10] MEDS ORDERED: ASPIRIN 81 MG CHEW PO STA (13:22)
[2017-09-10 13:49] VITALS: BP 134/90; PULSE 86; O2SAT 98
--- NOTE | 2017-09-10 14:41 | EMERGENCY ROOM VISIT NOTE ---
History Report prepared by Gil: Freddie Parson Under the Supervision of: Dr. Jay Sanderson M.D. First contact with patient: 10:03 Chief Complaint: HEADACHE Stated Complaint: HEAD ACHE, SPEECH History of Present Illness The patient is a 62 year old male who presents to the Emergency Room with complaints of a constant headache beginning yesterday. He states that he also had difficulty speaking yesterday. He states that he was able to think of what to say, but was unable to say the words. The patient states that he felt a little dizzy at this time as well. His symptoms were all present simultaneously. He was able to drive home despite his symptoms. The patient states that he has had no problems speaking today. He rates his headache as a 5/ 10 in severity. He states that his pain is present in both sides of his head. The patient notes that he has a mild headache two days ago as well. He denies any nausea, numbness, or weakness. He has no history of stroke or brain surgery. The patient notes that he has been coughing a lot recently. He is not on any blood thinning medication. He notes that he took aspirin last night, but does not normally take it. Source of History: patient Onset: Yesterday Position: head Symptom Intensity: 5/10 Quality: ache Timing: constant Associated Symptoms: + cough, No nausea, No weakness, No numbness Note: Positive: episode of inability to speak and dizziness yesterday. Review of Systems See HPI for pertinent positives & negatives. A total of 10 systems reviewed and were otherwise negative. Past Medical & Surgical Medical Problems: (1) Diabetes (2) HTN (hypertension) (3) Prostatitis Family History Cancer Social History Smoking Status: Never Smoker Marital Status: Housing Status: lives with family Occupation Status: employed Current/Historical Medications Scheduled Amlodipine (Norvasc), 5 MG PO QPM Atorvastatin (Lipitor), 40 MG PO HS Cholecalciferol (Vitamin D3), 1 TAB PO DAILY Levothyroxine Sodium (Levothyroxine Sodium), 125 MCG PO QAM Lisinopril (Lisinopril), 20 MG PO DAILY Metformin Hcl (Glucophage), 1,000 MG PO BID Multivitamin (Multivitamin), 1 TAB PO DAILY Allergies Coded Allergies: Codeine (Verified Adverse Reaction, Mild, nausea, 06/21/17) Physical Exam Vital Signs Date Time Temp Pulse Resp B/P (MAP) Pulse Ox O2 Delivery O2 Flow Rate FiO2 09/10/17 13:49 86 16 134/90 98 09/10/17 13:20 83 16 136/96 98 09/10/17 12:00 71 16 134/86 99 09/10/17 10:55 72 12 139/97 99 Room Air 09/10/17 10:44 81 20 138/88 98 Room Air 09/10/17 09:55 83 09/10/17 09:34 36.9 86 20 162/85 98 Room Air Physical Exam GENERAL: Patient is in no acute distress. HEENT: No acute trauma, normocephalic atraumatic, mucous membranes moist, no nasal congestion, no scleral icterus. NECK: No stridor, no adenopathy, no meningismus, trachea is midline. LUNGS: Clear to auscultation bilaterally, no wheeze, no rhonchi, breath sounds equal. HEART: Without murmurs gallops or rubs, regular rate and rhythm. ABDOMEN: Soft, nontender, bowel sounds positive, no hernias, no peritonitis. EXTREMITIES: No cyanosis or edema, full range of motion of all the joints without pain or difficulty, no signs for acute trauma. NEUROLOGIC: Oriented x 3, no acute motor or sensory deficits, no focal weakness. No cerebellar deficits. No pronator drift. No speech slur or facial droop. SKIN: No rash, no jaundice, no diaphoresis. Medical Decision & Procedures ER Provider Diagnostic Interpretation: Radiology results as stated below per my review and radiologist interpretation: CT HEAD WITHOUT CONTRAST (CT) FINDINGS: No intra or extra-axial mass lesions are visualized. There is no CT evidence of acute cortical infarction. There is no evidence of midline shift. There is no acute hemorrhage. No calvarial fractures are visualized. There is no evidence of pathologic ventricular dilatation. There is no evidence of acute sinusitis IMPRESSION: No acute intracranial findings Electronically signed by: Cade Pete M.D. 09/10/2017 10:39 AM BRAIN COMBO FINDINGS: Signal characteristics of the cerebellar as well as cerebral hemispheres are unremarkable. Ventricular system is midline. Postcontrast images are negative for an enhancing lesion. Diffusion images show no acute ischemic insult. IMPRESSION: Normal study. The above report was generated using voice recognition software. It may contain grammatical, syntax or spelling errors. Electronically signed by: Troy Palma M.D. 09/10/2017 1:10 PM Laboratory Results 09/10/17 09:56 Red Blood Count 5.21, Mean Corpuscular Volume 85.8, Mean Corpuscular Hemoglobin 30.9, Mean Corpuscular Hemoglobin Concent 36.0, Mean Platelet Volume 10.1, Neutrophils (%) (Auto) 63.4, Lymphocytes (%) (Auto) 22.4, Monocytes (%) (Auto) 8.1, Eosinophils (%) (Auto) 5.3, Basophils (%) (Auto) 0.3, Neutrophils # (Auto) 3.84, Lymphocytes # (Auto) 1.36, Monocytes # (Auto) 0.49, Eosinophils # (Auto) 0.32, Basophils # (Auto) 0.02 09/10/17 09:56 Test 09/10/17 09:55 09/10/17 09:56 09/10/17 10:30 Lyme Disease IgG Antibody NEG (NEG) Lyme Disease IgM Antibody NEG (NEG) White Blood Count 6.06 K/uL (4.8-10.8) Red Blood Count 5.21 M/uL (4.7-6.1) Hemoglobin 16.1 g/dL (14.0-18.0) Hematocrit 44.7 % (42-52) Mean Corpuscular Volume 85.8 fL (80-100) Mean Corpuscular Hemoglobin 30.9 pg (25-34) Mean Corpuscular Hemoglobin Concent 36.0 g/dl (32-36) Platelet Count 239 K/uL (130-400) Mean Platelet Volume 10.1 fL (7.4-10.4) Neutrophils (%) (Auto) 63.4 % Lymphocytes (%) (Auto) 22.4 % Monocytes (%) (Auto) 8.1 % Eosinophils (%) (Auto) 5.3 % Basophils (%) (Auto) 0.3 % Neutrophils # (Auto) 3.84 K/uL (1.4-6.5) Lymphocytes # (Auto) 1.36 K/uL (1.2-3.4) Monocytes # (Auto) 0.49 K/uL (0.11-0.59) Eosinophils # (Auto) 0.32 K/uL (0-0.5) Basophils # (Auto) 0.02 K/uL (0-0.2) RDW Standard Deviation 40.8 fL (36.4-46.3) RDW Coefficient of Variation 12.9 % (11.5-14.5) Immature Granulocyte % (Auto) 0.5 % Immature Granulocyte # (Auto) 0.03 K/uL (0.00-0.02) Prothrombin Time 10.0 SECONDS (9.0-12.0) Prothromb Time International Ratio 1.0 (0.9-1.1) Activated Partial Thromboplast Time 25.0 SECONDS (21.0-31.0) Partial Thromboplastin Ratio 1.0 Anion Gap 8.0 mmol/L (3-11) Est Creatinine Clear Calc Drug Dose 85.8 ml/min Estimated GFR () 91.1 Estimated GFR (Non- 78.6 BUN/Creatinine Ratio 18.6 (10-20) Calcium Level 8.5 mg/dl (8.5-10.1) Magnesium Level 2.1 mg/dl (1.8-2.4) Total Bilirubin 0.5 mg/dl (0.2-1) Direct Bilirubin < 0.1 mg/dl (0-0.2) Aspartate Amino Transf (AST/SGOT) 15 U/L (15-37) Alanine Aminotransferase (ALT/SGPT) 25 U/L (12-78) Alkaline Phosphatase 62 U/L (45-117) Total Creatine Kinase 67 U/L (39-308) Creatine Kinase MB 0.6 ng/ml (0.5-3.6) Creatine Kinase MB Ratio 0.9 (0-3.0) Troponin I < 0.015 ng/ml (0-0.045) Total Protein 7.3 gm/dl (6.4-8.2) Albumin 3.8 gm/dl (3.4-5.0) Free Thyroxine 1.11 ng/dl (0.80-1.60) Urine Color YELLOW Urine Appearance CLEAR (CLEAR) Urine pH 6.5 (4.5-7.5) Urine Specific [place] 1.014 (1.000-1.030) Urine Protein NEG (NEG) Urine Glucose (UA) NEG (NEG) Urine Ketones NEG (NEG) Urine Occult Blood NEG (NEG) Urine Nitrite NEG (NEG) Urine Bilirubin NEG (NEG) Urine Urobilinogen NEG (NEG) Urine Leukocyte Esterase NEG (NEG) Urine Opiates Screen NEG (NEG) Urine Methadone, Qualitative NEG (NEG) Urine Barbiturates NEG (NEG) Urine Phencyclidine (PCP) Level NEG (NEG) Ur Amphetamine/Methamphetamine NEG (NEG) MDMA (Ecstasy) Screen NEG (NEG) Urine Benzodiazepines Screen NEG (NEG) Urine Cocaine Metabolite NEG (NEG) Urine Marijuana (THC) NEG (NEG) Laboratory results reviewed by me. Medications Administered Medications (Trade) Dose Ordered Sig/Naz Route Start Time Stop Time Status Last Admin Dose Admin Acetaminophen (Tylenol Tab) 1,000 mg NOW STAT PO 09/10/17 10:13 09/10/17 10:16 DC 09/10/17 10:44 1,000 MG Lorazepam (Ativan Inj) 1 mg NOW STAT IV 09/10/17 11:44 09/10/17 11:45 DC 09/10/17 12:13 1 MG Aspirin (Aspirin Chew) 324 mg NOW STAT PO 09/10/17 13:22 09/10/17 13:24 DC 09/10/17 13:27 324 MG ECG Per My Interpretation Indication: other (neurologic symptoms) Rate (beats per minute): 74 Rhythm: normal sinus Findings: other (No ST elevations. No PVCs. ) ED Course 1006: The patient was evaluated in room C4. A complete history and physical exam was performed. 1013: Ordered Tylenol Tab 1000 mg PO. 1100: I updated the patient on his results. 1320: Reevaluated the patient. Discussed results and discharge instructions: he verbalized understanding and agreement. The patient is ready for discharge. Medical Decision The patient is a 62 year old male who presents to the ED with complaints of headache. Differential diagnoses considered include infection, Lyme disease, stroke, ICH, meningitis, electrolyte imbalance, anemia, and dehydration. There is no leukocytosis or concerning anemia. No significant electrolyte abnormality, kidney failure or hepatitis. Lyme disease testing was negative. EKG shows a normal sinus rhythm, no acute ischemia. Cardiac enzyme testing 1 is not consistent with acute cardiac injury. Brain CT shows no acute bleed or mass-effect. Urinalysis does not show infection. Urine tox is negative. Brain MRI shows no mass or stroke. On exam, there were no focal neurologic deficits. The patient was not febrile or toxic. No findings of meningismus. I did speak with neurology. They recommended the MRI which was performed as noted above. Since the MRI was normal, the patient was felt stable for discharge. The patient was given oral Tylenol for pain, he received oral aspirin as stroke prevention. He was given IV Ativan as this was required for him to tolerate the MRI. Patient is being discharged on a baby aspirin daily. He will follow with his doctor as an outpatient. If his symptoms worsen, he will return. The cause for his presentation is not clear, TIA is a possibility. Medication Reconcilliation Current Medication List: was personally reviewed by me Blood Pressure Screening Patient's blood pressure: Elevated blood pressure Blood pressure disposition: Elevated BP felt to be situational Consults Time Called: [id number] Consulting Physician: Dr. Howard - Neurology Returned Call: [phone] Discussed the patient's case. Dr. Howard recommends the patient have a brain MRI. Impression Primary Impression: Difficulty with speech Additional Impression: Headache Scribe Attestation The scribe's documentation has been prepared under my direction and personally reviewed by me in its entirety. I confirm that the note above accurately reflects all work, treatment, procedures, and medical decision making performed by me. Departure Information Dispostion Home / Self-Care Referrals Malcolm Lamas M.D. (PCP) Forms HOME CARE DOCUMENTATION FORM, IMPORTANT VISIT INFORMATION Patient Instructions My [facility] Additional Instructions aspirin daily for now see lucio sibley for a recheck this week rest and stay hydrated return if worsening use tylenol for the headache lab testing and imaging was all ok today Problem Qualifiers
== END 2017-09-10 13:32 | disposition home or self-care (01) ==
LOC: C.EDB 09:24 → C.EDC 13:32
DX: R47.9 Unspecified speech disturbances (principal); R51 Headache; E11.9 Type 2 diabetes mellitus without complications; I10 Essential (primary) hypertension

== ENCOUNTER → 2017-09-12 | Outpatient (CLI) | payer OTHER ==
[~2017-09-12] MED LIST changes: +CHOL1000 PO; -LISI-461 PO; +LSN20 PO; -PRLSR20 PO; -TRAM-10 PO; -VITAMIN D PO
== END | disposition home or self-care (01) ==
LOC: C.LAB1850 15:45
PROVIDERS: ATTEND Internal Medicine
DX: R51 Headache (principal)

== ENCOUNTER → 2017-09-18 | Outpatient (CLI) | payer OTHER ==
[2017-09-18 12:42] LABS: BLOOD UREA NITROGEN 20 mg/dl (7-18); CALCIUM 8.5 mg/dl (8.5-10.1); CARBON DIOXIDE 29 mmol/L (21-32); CREATININE 1.04 mg/dl (0.60-1.40); GLUCOSE 132 mg/dl (70-99); POTASSIUM 4.2 mmol/L (3.5-5.1); SODIUM 138 mmol/L (136-145)
[2017-09-18 12:54] LABS: CHOLESTEROL 124 mg/dl (0-200); LDL CHOLESTEROL CALCULATED 67 mg/dl
== END | disposition home or self-care (01) ==
LOC: C.LABBFT 07:39
PROVIDERS: ATTEND Internal Medicine
DX: E03.9 Hypothyroidism, unspecified (principal); E78.5 Hyperlipidemia, unspecified; I10 Essential (primary) hypertension

== ENCOUNTER → 2017-09-28 | Outpatient (CLI) | payer OTHER ==
--- NOTE | 2017-09-28 16:56 | ECHOCARDIOGRAM REPORT ---
*NOTICE TO RECEIVING REPUBLICAN AGENCY This information is strictly Confidential and protected under [place] law. [place] law prohibits you from making any further disclosure of this information unless further disclosure is expressly permitted by the written consent of the person to whom it pertains or is authorized by law. A general authorization for the release of medical or other information is not sufficient for this purpose. Hospital accepts no responsibility if the information is made available to any other person, INCLUDING THE PATIENT. Interpretation Summary * Name: RUSLAN BARONE Study Date: 09/28/2017 02:02 PM BP: 146/77 mmHg * Patient Location: [facility] HR: 79 * : 1955 (M/d/yyyy) Gender: Male Height: 68 in * Age: 62 yrs Ethnicity: [place] Weight: 200 lb * Ordering Physician: Melanie Soriano * Referring Physician: Melanie Soriano * Performed By: Brandi Light RDCS * * Reason For Study: Cerebral Ischemia/Embolus * BSA: 2.0 m2 * No cardiac source of emboli noted. * -- Conclusions -- * Left ventricular systolic function is normal. * Grade I diastolic dysfunction, (abnormal relaxation pattern). * Right ventricular systolic pressure is normal. * Injection of contrast documented no interatrial shunt. Procedure Details * A complete two-dimensional transthoracic echocardiogram was performed (2D, M-mode, Doppler and color flow Doppler). * A saline contrast injection was performed to assess for cardiac shunting. * The injection was performed through an intravenous line in the right arm. * The attending nurse who injected the saline contrast was Arlene Leavitt RN. * A total of 20 cc of agitated saline was given. Left Ventricle * The left ventricle is normal in size. * There is normal left ventricular wall thickness. * Ejection Fraction = 60-65%. * Left ventricular systolic function is normal. * Grade I diastolic dysfunction, (abnormal relaxation pattern). * The left ventricular wall motion is normal. Right Ventricle * The right ventricle is normal in size and function. * The right ventricular systolic function is normal. * The right ventricular systolic function is normal as assessed by tricuspid annular plane systolic excursion (TAPSE) (normal >1.5 cm). Atria * The left atrial size is normal. * Right atrial size is normal. * The interatrial septum is intact with no evidence for an atrial septal defect. * Injection of contrast documented no interatrial shunt. Mitral Valve * The mitral valve is grossly normal. * Significant mitral regurgitation is absent. Tricuspid Valve * The tricuspid valve is not well visualized, but is grossly normal. * There is mild tricuspid regurgitation. * Right ventricular systolic pressure is normal. Aortic Valve * The aortic valve is normal in structure and function. * No hemodynamically significant valvular aortic stenosis. * There is no significant aortic regurgitation. Pulmonic Valve * The pulmonic valve is not well seen, but is grossly normal. Great Vessels * The aortic root is normal size. Pericardium/Pleural * There is no pericardial effusion. MMode 2D Measurements and Calculations IVSd 1.1 cm IVSs 1.6 cm LVIDd 4.5 cm LVIDs 2.6 cm LVPWd 0.96 cm LVPWs 2.0 cm IVS/LVPW 1.1 FS 43.0 % EDV(Teich) 94.5 ml ESV(Teich) 24.4 ml EF(Teich) 74.2 % EDV(cubed) 93.7 ml ESV(cubed) 17.4 ml EF(cubed) 81.5 % % IVS thick 52.0 % % LVPW thick 109.3 % LV mass(C)d 156.7 grams LV mass(C)dI 76.7 grams/m\S\2 LV mass(C)s 183.9 grams LV mass(C)sI 90.0 grams/m\S\2 SV(Teich) 70.1 ml SI(Teich) 34.3 ml/m\S\2 SV(cubed) 76.4 ml SI(cubed) 37.4 ml/m\S\2 Ao root diam 2.7 cm Ao root area 5.9 cm\S\2 ACS 1.9 cm LA dimension 3.4 cm LA/Ao 1.3 LVAd ap4 25.0 cm\S\2 LVLd ap4 8.3 cm EDV(MOD-sp4) 66.0 ml EDV(sp4-el) 64.1 ml LVAs ap4 12.6 cm\S\2 LVLs ap4 6.6 cm ESV(MOD-sp4) 20.7 ml ESV(sp4-el) 20.6 ml EF(MOD-sp4) 68.6 % EF(sp4-el) 67.9 % LVAd ap2 26.9 cm\S\2 LVLd ap2 8.6 cm EDV(MOD-sp2) 77.3 ml EDV(sp2-el) 71.0 ml LVAs ap2 12.7 cm\S\2 LVLs ap2 6.6 cm ESV(MOD-sp2) 22.3 ml ESV(sp2-el) 20.7 ml EF(MOD-sp2) 71.1 % EF(sp2-el) 70.8 % LVLd %diff 4.2 % EDV(MOD-bp) 71.5 ml LVLs %diff 0.59 % ESV(MOD-bp) 21.4 ml EF(MOD-bp) 70.1 % SV(MOD-sp4) 45.3 ml SI(MOD-sp4) 22.2 ml/m\S\2 SV(MOD-sp2) 55.0 ml SI(MOD-sp2) 26.9 ml/m\S\2 SV(MOD-bp) 50.1 ml SI(MOD-bp) 24.5 ml/m\S\2 SV(sp4-el) 43.6 ml SI(sp4-el) 21.3 ml/m\S\2 SV(sp2-el) 50.3 ml SI(sp2-el) 24.6 ml/m\S\2 Doppler Measurements and Calculations MV E max zak 88.8 cm/sec MV A max zak 68.9 cm/sec MV E/A 1.3 MV dec time 0.23 sec Ao V2 max 155.6 cm/sec Ao max PG 9.7 mmHg Ao max PG (full) 4.4 mmHg LV V1 max PG 5.3 mmHg LV V1 max 115.0 cm/sec PA V2 max 118.8 cm/sec PA max PG 5.7 mmHg TR max zak 225.6 cm/sec
== END | disposition home or self-care (01) ==
LOC: C.CPL 13:36
PROVIDERS: ATTEND Physician Assistant
DX: R47.89 Other speech disturbances (principal); R29.90 Unspecified symptoms and signs involving the nervous system; R51 Headache